=== PATIENT | male | born 1970 | race Caucasian/White ===

== ENCOUNTER 2021-06-24 06:26 | Emergency (ER) | payer BC ==
[2021-06-24] MEDS ORDERED: CYCLOBENZAPRINE10 MG PO (07:44)
[2021-06-24] MEDS ORDERED: IBU800 MG PO (07:44)
== END 2021-06-24 09:10 | disposition home or self-care (01) ==
LOC: ER1 06:26
DX: M54.50 Low back pain, unspecified (principal); I10 Essential (primary) hypertension
CPT/HCPCS: 72131; 81001; 96372; 99284; J1885; J2360